=== PATIENT | male | born 2000 | race Two or more races ===

== ENCOUNTER 2025-02-10 05:00 | Emergency (ER) | payer MEDICAID, SELFPAY ==
[2025-02-10 05:01] VITALS: BMI 24.4
--- NOTE | 2025-02-10 05:07 | EKG_ITS ---
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
[2025-02-10 05:26] VITALS: BP 120/64; PULSE 67; RESP 19; TEMP 36.4; O2SAT 97
--- NOTE | 2025-02-10 05:32 | XR_ITS ---
Examination: PA lateral chest 2 views Technique: Upright PA lateral chest 2 views Date and time: February 10, 2025 0532 hrs. Indications: Onset chest pain shortness of breath beginning 2 days ago, asthma history. Findings: Dense focus of pneumonic consolidation which projects in the anterior segment left upper lobe Normal heart size Right lung clear. Osseous structures are intact Impression: Pneumonia in the left upper lung zone, recommend follow-up to document clearing
--- NOTE | 2025-02-10 05:32 | PD.EDRME ---
Rapid Medical Screening Exam RME Arrival date/time: 02/10/25 05:00 24M with history of asthma presents to ED with 2 days of CP and some SOB. Patient denies URI symptoms. Chief Complaint: Chest Pain Vital signs: Vital Signs Temperature 97.6 F 02/10/25 05:26 Pulse Rate 67 02/10/25 05:26 Respiratory Rate 19 02/10/25 05:26 Blood Pressure 120/64 02/10/25 05:26 Pulse Oximetry (%) 97 02/10/25 05:26 Oxygen Delivery Method Room Air 02/10/25 05:26
[2025-02-10 05:44] VITALS: BP 114/72; PULSE 66; RESP 19; TEMP 36.8; O2SAT 97
[2025-02-10 07:39] LABS: Basophils # (Auto) 0.1 Thou/mm3 (0.0-0.2); Basophils % (Auto) 1 % (0-2.5); Eosinophils # (Auto) 0.6 Thou/mm3 (0.0-0.5); Eosinophils % (Auto) 7 % (0-10); Hematocrit 42.6 % (41.0-53.0); Hemoglobin 13.9 g/dL (13.5-16.0); Immature Granulocytes Auto 0.13 Thou/mm3 (0.00-0.00); Lymphocytes # (Auto) 1.6 Thou/mm3 (1.0-4.8); Lymphocytes % (Auto) 18 % (10-50); Mean Corpuscular HGB Conc 32.6 g/dl (31.0-37.0); Mean Corpuscular Hemoglobin 27.7 pg (25.0-35.0); Mean Corpuscular Volume 85 fL (80-100); Monocytes # (Auto) 0.5 Thou/mm3 (0.0-0.8); Monocytes % (Auto) 5 % (0-12); Neutrophils # (Auto) 6.5 Thou/mm3 (1.8-7.7); Neutrophils % (Auto) 69 % (37-80); Nucleated Red Blood Cell # 0.00 Thou/mm3 (0.00-0.00); Nucleated Red Blood Cell % 0 /100 WBC (0); Platelet Count 168 Thou/mm3 (140-440); RDW Standard Deviation 40.6 fL (35.1-43.9); Red Blood Count 5.01 Miln/mm3 (4.50-5.90); White Blood Count 9.4 Thou/mm3 (3.8-10.6)
[2025-02-10 07:59] LABS: Alanine Aminotransferase 17 U/L (10-49); Albumin, Serum 4.3 gm/dL (3.5-5.0); Albumin/Globulin Ratio 1.7 (1.2-2.2); Alkaline Phosphatase 62 U/L (46-116); Anion Gap 7 (7-16); Aspartate Amino Transferase 18 U/L (0-34); BUN/Creatinine Ratio 9 Ratio (12-20); Bilirubin,Total 0.6 mg/dL (0.3-1.2); Blood Urea Nitrogen 8 mg/dL (9-23); C-Reactive Protein 0.8 mg/dL (0.0-0.9); Calcium 9.4 mg/dL (8.3-10.6); Calcium (Corrected) 9.4 mg/dL (8.5-10.1); Carbon Dioxide 30.9 mMol/L (20.0-31.0); Chloride 104 mMol/L (98-107); Creatinine (Component) 0.9 mg/dL (0.6-1.3); Estimated Creatinine Clearance 141.3 mL/min (>60); Globulin 2.5 gm/dL (2.3-3.5); Glucose 102 mg/dL (74-106); Osmolality,Calculated 281 (275-295); Potassium 4.8 mMol/L (3.4-5.1); Sodium 142 mMol/L (136-145); Total Protein 6.8 gm/dL (5.7-8.2); eGFR > 60 See Note
--- NOTE | 2025-02-10 08:43 | EDNOTE_ITS ---
<Statement entered by Ruma Turner MD - 03/01/25 06:08> As co-signing physician, I was present and available for consult prn. I concur with the plan and care as documented by the midlevel provider. Upper Respiratory Inf. RME/HPI General Chief Complaint: Chest Pain Stated Complaint: CHEST PAIN WHEN TAKING DEEP BREATHS Time Seen by Provider: 02/10/25 08:29 Arrival date/time: 02/10/25 05:00 24M with history of asthma presents to ED with 2 days of CP and some SOB. Patient denies URI symptoms. There are no other associated symptoms or aggravating factors no other modifying factors, patient denies taking medication before coming to ER today Limitations: no limitations RME / HPI RME / HPI Narrative: 02/10/25 05:00 24M with history of asthma presents to ED with 2 days of CP and some SOB. Patient denies URI symptoms. Related Data Previous Rx's ?Medication ?Instructions ?Recorded amoxicillin 875 mg-potassium 1 tab PO BID 7 days #14 t abs 02/10/25 clavulanate 125 mg tablet azithromycin 500 mg tablet See Rx Instructions PO .COM PLEX #6 02/10/25 tabs ibuprofen 600 mg tablet 600 mg PO Q6H #30 tabs 02/10 Allergies Allergy/AdvReac Type Severity Reaction Status Date / Time No Known Allergies Allergy Mild Uncoded 09/18/08 11:03 Review of Systems Review of Systems Systems Reviewed: All systems reviewed, normal except as documented Constitutional Constitutional: Reports system reviewed and no additional complaints, except as documented, Denies fever(s) and Denies headache(s) Eyes Eyes: Reports system reviewed and no additional complaints, except as documented and Denies blurry vision ENT Ears, Nose, Mouth, and Throat: Reports system reviewed and no additional complaints, except as documented, Denies headache(s), Denies nasal congestion and Denies nasal discharge Cardiovascular Cardiovascular: Reports system reviewed and no additional complaints, except as documented, Reports chest pain and Reports dyspnea Respiratory Respiratory: Reports system reviewed and no additional complaints, except as documented, Denies chest congestion, Denies cough and Reports dyspnea Gastrointestinal Gastrointestinal: Reports system reviewed and no additional complaints, except as documented and Denies abdominal pain Integumentary/Breasts Skin/Breast: Reports system reviewed and no additional complaints, except as documented and Denies rash Neurologic Neurologic: Reports system reviewed and no additional complaints, except as documented, Reports as per HPI and Denies headache(s) Past Medical History Social History SMOKING STATUS: Never smoker ED Exam General Limitations: Present no limitations General appearance: Present alert and in no apparent distress Head Head exam: Present atraumatic, normocephalic and normal inspection Eye Eye exam: Present normal appearance, PERRL and EOMI; Absent conjunctival injection ENT ENT exam: Present normal exam, normal oropharynx and mucous membranes moist Neck Neck exam: Present normal inspection, full ROM and trachea midline Chest Chest inspection: Present normal inspection and symmetric chest wall rise Respiratory Respiratory exam: Present normal lung sounds bilaterally Cardiovascular Cardiovascular exam: Present regular rate, normal rhythm and normal heart sounds; Absent bradycardia, tachycardia or irregular rhythm Abdominal Exam Abdominal exam: Present soft and normal bowel sounds; Absent distention or tenderness Extremities Exam Extremities exam: Present normal inspection and full ROM Back Exam Back exam: Present normal inspection and full ROM Neurological Exam Neurological exam: Present alert, oriented X3, CN II-XII intact, normal gait and reflexes normal; Absent motor sensory deficit Psychiatric Psychiatric exam: Present normal affect and normal mood Skin Skin exam: Present warm, dry, intact and normal color Course Quality Measures none Orders Category Date Time Status Bedside COVID-19 Antigen Test NOW Care 02/10/25 05:43 Completed Bedside Influenza A&B Antigen Test NOW Care 02/10/25 05:43 Completed EKG (ED ONLY) *Do not use* NOW Care 02/10/25 05:07 Completed EKG (ED Only) Stat Exams 02/10/25 05:07 Draft XR chest 2V Stat Exams 02/10/25 05:32 Completed CBC Stat Lab 02/10/25 07:35 Completed CMP [Comprehensive Metabolic Panel] Stat Lab 02/10/25 07:35 Completed CRP [C-Reactive Protein] Stat Lab 02/10/25 07:35 Completed Cocci Serology IgM with reflex to IgG [Cocci Serology, Lab 02/10/25 07:35 Results Unk History] Stat Lidocaine 1% 20 ml [Xylocaine 1% 20 ML] Med 02/10/25 08:44 Discontinued 2.1 ml INFL X1 ONE cefTRIAXone [Rocephin] Med 02/10/25 08:44 Discontinued 1,000 mg IM X1 ONE cefTRIAXone [Rocephin] 1,000 mg Med 02/10/25 08:46 Discontinued Lidocaine 1% 20 ml [Xylocaine 1% 20 ML] 2.1 ml IM X1 predniSONE Med 02/10/25 05:32 Discontinued 40 mg PO X1 ONE Vital Signs Vital signs: Vital Signs Temperature 97.6 F 02/10/25 05:26 Pulse Rate 67 02/10/25 05:26 Respiratory Rate 19 02/10/25 05:26 Blood Pressure 120/64 02/10/25 05:26 Pulse Oximetry (%) 97 02/10/25 05:26 Oxygen Delivery Method Room Air 02/10/25 05:26 O2 saturation 97% room air with normal limits PROCEDURES: EKG Interpretation #1: Date of EK02/10/25 Time of EK:09 Rate: 71 Interpretation: Interpreted by me EKG Impression: Normal sinus rhythm, No acute ST-T changes, No ectopy, No ischemic changes, Normal QRS and Normal intervals Upper Respiratory Infection MDM Narrative MDM Narrative:: 24M with history of asthma presents to ED with 2 days of CP and some SOB. Patient denies URI symptoms. There are no other associated symptoms or aggravating factors no other modifying factors, patient denies taking medication before coming to ER today On exam patient well-appearing patient does not appear toxic Lab work imaging and EKG obtained X-ray consistent with pneumonia Coccidiomycosis ordered which came back negative Patient was treated course of antibiotics Patient given injection of Rocephin here Patient advised a repeat x-ray in 2 weeks Patient discharged home in no distress follow-up primary care doctor next 24 to 48 hours worsening symptoms return Patient data External records reviewed:: [facility] previous records Clinical information provided by:: patient Social determinants that could affect healthcare access:: none Patient has the following chronic illnesses:: None How is presenting disease/condition affected by chronic disease/condition?: no chronic disease Evaluation data The following diagnostics were reviewed and interpreted by me:: lab results, radiology exam(s) and EKG tracing(s) Lab and/or radiology exams considered but not ordered:: Labs, radiology, EKG obtained Interpretation Summary: Reviewed by me Medications / Prescriptions Medications or Prescriptions considered but not ordered:: Given Medication administrations:: Medication Administration History Discontinued Medications Ceftriaxone Sodium (Ceftriaxone Sod Inj 1,000 Mg Vial) 1,000 mg IM X1 ONE Stop: 02/10/25 08:45 Last Admin: 02/10/25 08:48 Dose: Not Given Documented By: VG Non-Admin Reason: Discontinued Ceftriaxone Sodium 1,000 mg/ (Lidocaine HCl 2.1 ml) 0 mg IM X1 ONE Stop: 02/10/25 08:47 Last Admin: 02/10/25 08:50 Dose: 1,000 mg Documented By: VG Lidocaine HCl (Lidocaine Hcl 1% 20 Ml Vial) 2.1 ml INFL X1 ONE Stop: 02/10/25 08:45 Last Admin: 02/10/25 08:48 Dose: Not Given Documented By: VG Non-Admin Reason: Discontinued Prednisone (Prednisone 20 Mg Tablet) 40 mg PO X1 ONE Stop: 02/10/25 05:33 Last Admin: 02/10/25 05:39 Dose: 40 mg Documented By: SF Given Consultations Consultation(s) initiated? (list below): No Diagnosis Upper Respiratory Differential Diagnosis: upper respiratory infection, croup, otitis media and sinusitis Most likely diagnosis given after review of the tests above:: Pneumonia Admission Indicated Admission indicated?: not indicated Admission Request Was there a request for admission?: No Disposition Plan Disposition Plan: Discharge Discharge Attestation Discharge Attestation: The patient and all family members were given an opportunity to ask questions and understood the discharge instructions. Discharge instructions specifically effects, indications for sooner follow up or return to the emergency department, and the expected course of current diagnosis. Patient condition: Stable Discharge Plan Plan Patient Disposition: HOME (Self Care) Discharge Disposition comment: Stable Prescriptions/Referrals Prescriptions/Med Rec: New ibuprofen 600 mg tablet 600 mg PO Q6H Qty: 30 0RF amoxicillin-pot clavulanate 875-125 mg tablet 1 tab PO BID 7 Days Qty: 14 0RF azithromycin 500 mg tablet See Rx Instructions .ROUTE .COMPLEX Qty: 6 0RF Rx Instructions: take 500 mg today (day 1), then 250 mg for 4 days (days 2-5) Referrals: Nereyda Tang PA-C [Primary Care Provider] - 02/11/25 Problem List Clinical Impression: Pneumonia Patient/Caregiver Discharge Instructions Education Materials: What Is Pneumonia? Additional Instructions: Please follow up with your primary care doctor in the next 24-48hrs for any worsening symptoms return here immediately Your valley fever test is pending if you do not receive a call within the next 24 to 48 hours please follow-up. Print Language: Armenian Stand Alone Forms: Lida Award Info., Work/School Release, Patient Portal Info Letter PA/HELP DESK MANAGER Supervising Physician PA/HELP DESK MANAGER Supervising Physician: Dr. Turner
[2025-02-10] MEDS: cefTRIAXone 1,000 MG, LIDOCAINE 1% 20 ML 2.1 ML IM (08:50)
[2025-02-10 11:38] LABS: Cocci Serology, IgM Negative (Negative)
[2025-02-11 10:17] LABS: Cocci Serology, IgG Negative (Negative)
== END 2025-02-10 08:59 | disposition home or self-care (01) ==
PROVIDERS: Nurse Practitioner Primary Care; Emergency Provider Emergency Medicine; PCP Physician Assistant
DX: J18.9 Pneumonia, unspecified organism (principal); J45.909 Unspecified asthma, uncomplicated
CPT/HCPCS: 36415; 71046; 80053; 85025; 86140; 86331; 86635; 87400; 87811; 93005; 96372; 99283; J0696; J3490; J7512

== ENCOUNTER → 2025-02-24 | Outpatient (CLI) | payer MEDICAID, SELFPAY ==
--- NOTE | 2025-02-24 09:44 | XR_ITS ---
Examination: PA lateral chest 2 views TECHNIQUE: Upright PA lateral chest 2 views Date and time: February 24, 2025 0947 hours, comparison 02/10/2025 INDICATIONS: Pneumonia left upper lobe on films 02/10/2025 FINDINGS: Improvement in pneumonia left upper lobe, small residual Normal heart size Right lung clear IMPRESSION: Recommend continued follow-up to document complete clearing pneumonia left upper lobe
== END | disposition home or self-care (01) ==
LOC: CDIM 09:38
PROVIDERS: PCP Physician Assistant; Referring Provider Physician Assistant; Visit Provider Physician Assistant
DX: J18.9 Pneumonia, unspecified organism (principal)
CPT/HCPCS: 71046

== ENCOUNTER → 2025-04-05 | Outpatient (CLI) | payer MEDICAID, SELFPAY ==
--- NOTE | 2025-04-05 09:14 | XR_ITS ---
EXAMINATION: PA lateral chest 2 views TECHNIQUE: Upright PA lateral chest 2 views Date and time: April 05, 2025, 0929 hours INDICATIONS: History of pneumonia 2 months ago. FINDINGS: Normal heart size Lungs are clear. The Wade structures are intact IMPRESSION: No active disease
== END | disposition home or self-care (01) ==
LOC: CDIM 09:09
PROVIDERS: PCP Physician Assistant; Referring Provider Physician Assistant; Visit Provider Physician Assistant
DX: Z87.01 Personal history of pneumonia (recurrent) (principal)
CPT/HCPCS: 71046